=== PATIENT | female | born 1955 | race Caucasian/White ===

== ENCOUNTER 2016-09-26 16:20 | Outpatient (CLI) | END 2016-09-26 16:21 | disposition home or self-care (01) | LOC: LAB 16:20 | PROVIDERS: ATTEND Nurse Practitioner Family | DX: J02.9 Acute pharyngitis, unspecified (principal) | CPT/HCPCS: 87880 ==

== ENCOUNTER 2016-11-08 07:11 | Outpatient (CLI) ==
--- NOTE | 2016-11-08 08:33 | US ---
EXAM: Ultrasound retroperitoneal complete. HISTORY: Decreased renal function. COMPARISON: None available. TECHNIQUE: Multiple kumar scale and color Doppler images. FINDINGS: Right kidney measures 10.5 x 3.9 x 4.4 cm. The left kidney measures 11.6 x 4.1 x 4 cm. Cortical echogenicity is normal although there is mild renal cortical thinning bilaterally. There i s no hydronephrosis. Urinary bladder is unremarkable. IMPRESSION: Mild renal cortical thinning suggesting chronic renal disease. No acute sonographic abnormality of the kidneys.
== END 2016-11-08 07:12 | disposition home or self-care (01) ==
LOC: RAD 07:11
PROVIDERS: ATTEND Family Medicine
DX: R94.4 Abnormal results of kidney function studies (principal)
CPT/HCPCS: 76770

== ENCOUNTER 2017-08-18 16:56 | Outpatient (CLI) ==
--- NOTE | 2017-08-18 18:06 | DI ---
EXAM: PA and lateral views of the chest HISTORY: Fever and pleurisy COMPARISON: Chest x-ray 07/13/[address] chest 07/31/2015 FINDINGS: The cardiomediastinal silhouette is unchanged with calcified left hilar lymph node. There is no pneumothorax or pleural effusion. There is consolidation developing in the right middle lobe. There is no additional consolidation, nodule or mass. The osseous structures demonstrate multileve l degenerative disease. IMPRESSION: Developing consolidation in the right middle lobe consistent with pneumonia.
== END 2017-08-18 16:57 | disposition home or self-care (01) ==
LOC: RAD 16:56
PROVIDERS: ATTEND Family Medicine
DX: R50.9 Fever, unspecified (principal); R05 Cough; R09.1 Pleurisy

== ENCOUNTER 2017-09-24 15:31 | Outpatient (CLI) ==
--- NOTE | 2017-09-24 15:58 | DI ---
EXAM: Two views of the chest. History: Follow-up pneumonia Comparison: Chest radiograph 08/18/2017 Findings: Heart size is within normal limits. Calcified granulomas again seen within the thorax. P ersistent but improving right middle lobe infiltrate. No developing opacities. No appreciable pleur al fluid and no pneumothorax. Visualized osseous structures unchanged with no acute osseous abnormal ities identified. Impression: Persistent but improving right middle lobe pneumonia.
== END 2017-09-24 15:32 | disposition home or self-care (01) ==
LOC: RAD 15:31
PROVIDERS: ATTEND Family Medicine
DX: J18.9 Pneumonia, unspecified organism (principal)

== ENCOUNTER 2018-09-03 10:25 | Outpatient (CLI) ==
--- NOTE | 2018-09-03 14:22 | DI ---
EXAM: PA and lateral views of the chest HISTORY: Cough. COMPARISON: Chest x-ray 09/24/2017 and multiple priors including CT chest 07/31/2015 FINDINGS: The cardiomediastinal silhouette is unchanged with left calcified hilar lymph node. There is no pneumothorax or pleural effusion. There is no consolidation, nodule or mass. The osseous str uctures demonstrate degenerative disease of the spine. IMPRESSION: No acute cardiopulmonary process
== END 2018-09-03 10:26 | disposition home or self-care (01) ==
LOC: RAD 10:25
PROVIDERS: ATTEND Family Medicine
DX: R05 Cough (principal)

== ENCOUNTER 2018-11-05 15:44 | Outpatient (CLI) ==
--- NOTE | 2018-11-05 16:45 | DI ---
EXAM: CHEST FRONTAL AND LATERAL VIEWS HISTORY: Fall contusion to the left side. COMPARISON: 09/03/2018 FINDINGS: Heart size and mediastinal contour remain within normal limits. There are scattered rosamaria cifications suggesting old granulomatous disease. Lungs are clear. No pleural fluid or pneumothorax . No acute bony deformity or fracture identified. IMPRESSION: 1. No acute injuries identified.
--- NOTE | 2018-11-06 10:42 | DI ---
EXAM: Four views of the left ribs. History: Left rib trauma. Comparison: Chest radiograph 11/05/2018 Findings: Heart is mildly enlarged. Calcified granulomas seen within the thorax. No left pneumotho rax. Mildly displaced fracture of the left lateral eighth rib. Impression: Left lateral eighth rib fracture.
== END 2018-11-05 15:45 | disposition home or self-care (01) ==
LOC: RAD 15:44
PROVIDERS: ATTEND Family Medicine
DX: S27.321A Contusion of lung, unilateral, initial encounter (principal); R07.81 Pleurodynia; R07.89 Other chest pain; W19.XXXA Unspecified fall, initial encounter

== ENCOUNTER 2020-11-22 12:18 | Inpatient (IN) ==
[2020-11-22] MEDS ORDERED: SODIUM CHLORIDE 1,000 ML IV SCH ×2 (15:00→21:00)
[2020-11-22 15:08] LABS: BASOPHILS # (AUTO) 0.1 K/uL (0-0.2); BASOPHILS % (AUTO) 0.2 % (0.0-3.0); HEMATOCRIT 32.9 % (37.0-47.0); IMMATURE GRANULOCYTE # (AUTO) 0.3 (0.0-1.0); IMMATURE GRANULOCYTE % (AUTO) 1.3 % (0.0-5.0); LYMPHOCYTES # (AUTO) 1.2 K/uL (0.60-3.4); LYMPHOCYTES % (AUTO) 5.3 (10.0-50.0); MEAN CORPUSCULAR HEMOGLOBIN 28.4 pg (27.0-31.0); MEAN CORPUSCULAR HGB CONC 33.4 (31.8-35.4); MEAN CORPUSCULAR VOLUME 84.8 fl (81.0-99.0); MONOCYTES # (AUTO) 1.2 K/uL (0.4-2.0); MONOCYTES % (AUTO) 5.4 (0-10); NEUTROPHILS % (AUTO) 87.8 % (42.2-75.2); PLATELET COUNT 192 10^3/uL (140-440); RDW COEFFICIENT OF VARIATION 13.6 % (11.6-14.8); RED BLOOD COUNT 3.88 10^6/ul (4.20-5.40); WHITE BLOOD COUNT 21.66 K/ul (4.6-10.2)
[2020-11-22 15:11] VITALS: BMI 29.6
[2020-11-22 15:18] LABS: ALANINE AMINOTRANSFERASE 18.9 U/L (0-35); ALBUMIN 3.82 g/dL (3.5-5.0); ALKALINE PHOSPHATASE 106.6 U/L (53-141); ASPARTATE AMINO TRANSFERASE 33.1 U/L (14-36); BILIRUBIN,TOTAL 0.88 mg/dL (0.2-1.3); BLOOD UREA NITROGEN 23.4 mg/dL (7-17); CALCIUM 8.45 mg/dL (8.4-10.2); CARBON DIOXIDE 27.1 mmol/L (22-30.0); CHLORIDE 98.9 mmol/L (98-107); CREATININE 0.89 mg/dL (0.60-1.30); GLUCOSE 109.3 mg/dL (74-106); POTASSIUM 3.56 mmol/L (3.5-5.1); SODIUM 134.9 mmol/L (134.5-145); TOTAL PROTEIN 8.08 g/dL (6.3-8.2)
[2020-11-22] MEDS: DUONEB NEB SCH (19:50)
[2020-11-22] MEDS: SODIUM CHLORIDE 0.9%-KCL 20 MEQ 1,000 ML IV SCH (20:13)
--- NOTE | 2020-11-22 21:45 | DI ---
EXAM: PA and lateral views of the chest HISTORY: Shortness of breath COMPARISON: Chest x-ray 11/05/2018 and multiple priors FINDINGS: The cardiomediastinal silhouette is normal. There is a right hilar mass with patchy groun d-glass throughout the right lung. There is calcified granuloma in the left hilum. There is degener ative disease of the spine. IMPRESSION: Questionable right hilar mass with patchy ground-glass throughout the right lung. CT ch est with contrast is recommended to further evaluate.
[2020-11-22] MEDS: TYLENOL PO PRN (22:17)
[2020-11-22] MEDS: SOLU-MEDROL 40 MG IVP SCH (22:22)
[2020-11-22] MEDS ORDERED: LEVAQUIN 500 MG/100 ML D5W 500 MG/100 ML BAG IV SCH (22:30)
[2020-11-23] MEDS: DUONEB NEB SCH ×4 (04:45→18:52)
[2020-11-23] MEDS: SOLU-MEDROL 40 MG IVP SCH ×3 (04:58→20:54)
[2020-11-23] MEDS: SODIUM CHLORIDE 0.9%-KCL 20 MEQ 1,000 ML IV SCH (04:59)
[2020-11-23 05:19] LABS: BASOPHILS # (AUTO) 0.1 K/uL (0-0.2); BASOPHILS % (AUTO) 0.3 % (0.0-3.0); EOSINOPHILS # (AUTO) 0.1 K/ul (0.0-0.7); EOSINOPHILS % (AUTO) 0.3 % (0.0-7.0); HEMATOCRIT 33.2 % (37.0-47.0); HEMOGLOBIN 10.9 g/dl (12.0-16.0); IMMATURE GRANULOCYTE # (AUTO) 0.4 (0.0-1.0); IMMATURE GRANULOCYTE % (AUTO) 2.3 % (0.0-5.0); LYMPHOCYTES # (AUTO) 0.7 K/uL (0.60-3.4); LYMPHOCYTES % (AUTO) 3.7 (10.0-50.0); MEAN CORPUSCULAR HEMOGLOBIN 28.3 pg (27.0-31.0); MEAN CORPUSCULAR HGB CONC 32.8 (31.8-35.4); MEAN CORPUSCULAR VOLUME 86.2 fl (81.0-99.0); MONOCYTES # (AUTO) 0.6 K/uL (0.4-2.0); NEUTROPHILS # (AUTO) 16.6 K/ul (2.0-6.9); NEUTROPHILS % (AUTO) 90.4 % (42.2-75.2); PLATELET COUNT 198 10^3/uL (140-440); RDW COEFFICIENT OF VARIATION 13.6 % (11.6-14.8); RED BLOOD COUNT 3.85 10^6/ul (4.20-5.40); WHITE BLOOD COUNT 18.31 K/ul (4.6-10.2)
[2020-11-23 05:29] LABS: BLOOD UREA NITROGEN 18.4 mg/dL (7-17); CALCIUM 8.44 mg/dL (8.4-10.2); CARBON DIOXIDE 26.7 mmol/L (22-30.0); CHLORIDE 104.6 mmol/L (98-107); CREATININE 0.71 mg/dL (0.60-1.30); GLUCOSE 160.9 mg/dL (74-106); POTASSIUM 4.1 mmol/L (3.5-5.1); SODIUM 138.5 mmol/L (134.5-145)
[2020-11-23] MEDS: NORVASC PO SCH (08:20)
[2020-11-23] MEDS: LEXAPRO PO SCH (08:21)
[2020-11-23] MEDS: SYMBICORT 160-4.5 MCG INHALER IH SCH ×2 (13:56→20:18)
[2020-11-23] MEDS: CAPOTEN PO SCH (20:17)
[2020-11-23] MEDS ORDERED: LEVAQUIN 500 MG/100 ML D5W 500 MG/100 ML BAG IV SCH (21:00)
[2020-11-23] MEDS ORDERED: LEVAQUIN 750 MG/150 ML D5W 750 MG/150 ML BAG IV SCH (21:00)
[2020-11-24 04:44] LABS: HEMATOCRIT 32.2 % (37.0-47.0); HEMOGLOBIN 10.6 g/dl (12.0-16.0); MEAN CORPUSCULAR HGB CONC 32.9 (31.8-35.4); PLATELET COUNT 235 10^3/uL (140-440); RDW COEFFICIENT OF VARIATION 13.6 % (11.6-14.8); RED BLOOD COUNT 3.79 10^6/ul (4.20-5.40); WHITE BLOOD COUNT 22.36 K/ul (4.6-10.2)
[2020-11-24 04:47] LABS: ANISOCYTOSIS NOT PRESENT (NOT PRESENT)
[2020-11-24 04:55] LABS: BLOOD UREA NITROGEN 27.7 mg/dL (7-17); CALCIUM 9.39 mg/dL (8.4-10.2); CARBON DIOXIDE 23.8 mmol/L (22-30.0); CHLORIDE 103.4 mmol/L (98-107); CREATININE 0.75 mg/dL (0.60-1.30); GLUCOSE 144.6 mg/dL (74-106); POTASSIUM 4.01 mmol/L (3.5-5.1)
[2020-11-24] MEDS: DUONEB NEB SCH ×2 (05:15→10:27)
[2020-11-24] MEDS: SOLU-MEDROL 40 MG IVP SCH (05:15)
[2020-11-24 05:41] VITALS: TEMP 97.7
[2020-11-24 07:41] VITALS: BP 134/86
[2020-11-24] MEDS: NORVASC PO SCH (08:08)
[2020-11-24] MEDS: LEXAPRO PO SCH (08:08)
[2020-11-24] MEDS: CAPOTEN PO SCH (08:08)
[2020-11-24] MEDS: SYMBICORT 160-4.5 MCG INHALER IH SCH (08:10)
--- NOTE | 2020-11-24 08:29 | CT ---
EXAM: Chest CT with contrast 11/24/2020 HISTORY: Shortness of breath TECHNIQUE: Axial CT images were obtained through the chest after the administration of intravenous co ntrast. Coronal and sagittal reformatted images were also submitted for interpretation. All CT scans are performed using dose optimization techniques as appropriate to the performed exam an d includes at least one of the following: Automated exposure control, adjustment of the mA and/or kV according to size, and the use of iterative reconstruction technique. COMPARISON: Chest CT dated 07/31/2015. FINDINGS: There is atelectasis of the right middle lobe, inferior and posterior aspect of the right upper lobe, and medial aspect of the left upper lobe. There is a small right pleural effusion, with adjacent at electasis. Patchy airspace opacities are noted in the right upper lobe, right lower lobe and left up per lobe, which could represent multifocal pneumonia. There is a calcified granuloma in the left upper lobe. The heart size is normal without pericardial effusion. There are coronary artery calcifications. The thoracic aorta is normal in size. There is mediastinal lymphadenopathy measuring up to 1.6 cm in the pretracheal region. There is righ t hilar lymphadenopathy measuring 1.3 cm in short axis. There is a large calcified AP window lymph n ode. There is a calcified left hilar lymph nodes. Soft tissue structures are unremarkable. The visualized portions of the upper abdomen are within normal limits. The bones are intact. IMPRESSION: 1. Patchy airspace opacities are noted in the right upper lobe, right lower lobe and left upper lobe, which could represent multifocal pneumonia. 2. Small right pleural effusion. 3. Atelectasis of the right middle lobe, inferior and posterior aspect of the right upper lobe, and m edial aspect of the left upper lobe. 4. Mediastinal and right hilar lymphadenopathy. 5. Prior granulomatous disease. 6. Coronary artery calcifications. All CT scans are performed using dose optimization techniques as appropriate to the performed exam an d include at least one of the following: Automated exposure control, adjustment of the mA and/or kV according t o size, and the use of iterative reconstruction technique.
[2020-11-24] MEDS: TYLENOL PO PRN (08:38)
== END 2020-11-24 13:42 | disposition home or self-care (01) | DRG 684 ==
LOC: LAB 12:18 → MEDSURG A 14:33
PROVIDERS: ADMIT Family Medicine; ATTEND Family Medicine